=== PATIENT | male | born 1960 | race Caucasian/White ===

== ENCOUNTER 2021-04-19 06:27 | Emergency (ER) | payer BC ==
[2021-04-19] MEDS ORDERED: Cardizem IV 50 MG/10 ML IV ONE ×2 (07:20→07:25)
[2021-04-19] MEDS ORDERED: CARDIZEM DRIP 100 MG/100 ML D5W 100 ML IV PRN (07:20)
[2021-04-19] MEDS ORDERED: CARDIZEM DRIP 100 MG/100 ML D5W 100 ML IV ONE (07:24)
[2021-04-19 07:29] LABS: Absolute Neutrophil Ct (ANC) 3.65 (1.4-6.9); BASOPHIL % 0.2 % (0.0-0.4); Basophil (Absolute #) 0.01 (0-0.4); Eosinophil % 2.9 % (0.00-5.0); Eosinophil (Absolute #) 0.16 (0-0.5); Hematocrit 41.5 % (42-50); Hemoglobin 13.3 gm/dl (12.5-18.0); Lymphocyte (Absolute #) 1.23 (1.0-4.6); Lymphocytes % 22.2 % (24.0-44.0); Mean Cell Volume 95.8 fl (78-100); Mean Corpuscular Hemoglobin 30.7 pg (26-32); Mean Platelet Volume 11.1 fl (7.5-11.0); Neutrophil % 65.7 % (36.0-66.0); Platelet Count 214 K/mm3 (150-450); Red Blood Count 4.33 M/mm3 (4.1-5.6); Red Cell Distribution Width 13.9 % (11.5-14.0); White Blood Count 5.6 K/mm3 (4.0-10.5)
[2021-04-19 08:00] LABS: ALBUMIN 4.1 g/dL (3.5-5.0); ALKALINE PHOSPHATASE 104 U/L (38-126); ANION GAP 15.1 MEQ/L (5-15); BLOOD UREA NITROGEN 22 mg/dL (9-20); CHLORIDE 105 mmol/L (98-107); Calcium 9.4 mg/dL (8.4-10.2); Carbon Dioxide 25 mmol/L (22-30); Creatinine 1 1.08 mg/dL (0.66-1.25); EST GLOMERULAR FILTRATION RATE > 60.0 ML/MIN; Glucose 92 mg/dL (74-106); NT PRO BNP 104 pg/mL (0-900); Potassium 4.1 mmol/L (3.5-5.1); SGOT/AST 27 U/L (17-59); SGPT/ALT 23 U/L (0-50); SODIUM 141 mmol/L (137-145); Total Protein 6.8 g/dL (6.3-8.2)
--- NOTE | 2021-04-19 08:33 | ERPHSYRPT ---
- History of Present Illness Time Seen by Provider: 04/19/21 06:30 Source: patient Exam Limitations: no limitations Patient Subjective Stated Complaint: I sat down to have my coffee and started getting sweaty and hot and couldn't get a correct reading on my pulse Triage Nursing Assessment: Pt c/o palpitations, states, "I think I'm back in a-fib". Heart tones irregular, pt c/o sob. Pt's O2 sats 99-100% on rm air. Lungs clear bilat ant and post. 3+ pitting edema bilat. Physician History: Patient is a 61-year-old male with a history of A. fib presents to our ED with complaints of heart palpitations and diaphoresis observed today at 5:30 AM. Patient states he was preparing to have a couple coffee on his way to work when symptoms started. He felt slightly lightheaded. No syncope. Patient checked his pulse and was unable to palpate a pulse. Patient became concerned and came to our ED. Patient has had an ablation for his A. fib in the past. He is currently on Xarelto. No associated chest pain. No shortness of breath. No nausea or vomiting. Symptoms are mild to moderate in intensity. No specific w orsening or improving factors. Patient voices no other complaints or concerns at this time. Timing/Duration: today Severity: moderate Modifying Factors: Improves With: nothing Associated Symptoms: diaphoresis, other (Slight lightheadedness) Allergies/Adverse Reactions: No Known Drug Allergies Allergy (Verified 04/19/21 06:44) Home Medications: Alprazolam [Alprazolam ER] 0.5 mg PO DAILY 04/19/21 [History] Cyclobenzaprine HCl 10 mg [Cyclobenzaprine 10 MG] 1 tab PO TID 04/19/21 [History] Ferrous Sulfate 325 mg [Feosol 325 mg] 1 tab PO QID PRN 04/19/21 [History] Furosemide 40 mg PO DAILY 04/19/21 [History] Gabapentin 300 mg [Neurontin 300 mg] 900 mg PO TID 04/19/21 [History] Hydrocodone/Acetaminophen [Hydrocodone-Acetamin 5-325 mg] 1 tab PO QID PRN PRN 04/19/21 [History] Metoprolol Succinate 25 mg Xl* [Toprol-Xl 25MG Tablets] 1 tab PO DAILY 04/19/21 [History] Potassium Chloride 10 meq PO DAILY 04/19/21 [History] Rivaroxaban [Xarelto] 20 mg PO DAILY 04/19/21 [History] Hx Tetanus, Diphtheria Vaccination/Date Given: Yes Hx Influenza Vaccination/Date Given: Yes Hx Pneumococcal Vaccination/Date Given: No Immunizations Up to Date: Yes Travel Risk - International Travel Have you traveled outside of the country in past 3 weeks: No - Coronavirus Screening Are you exhibiting any of the following symptoms?: Yes Symptoms: Shortness of Breath Close contact with a COVID-19 positive Pt in past 14-21 Days: No - Vaccine Status Have you recieved a Covid-19 vaccination: Yes 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 - Vaccination Dates Date of 2cond Vaccination (if applicable): Aug, 2020 - Review of Systems Constitutional: No Symptoms, No Fever, No Chills Eyes: No Symptoms Ears, Nose, & Throat: No Symptoms Respiratory: No Symptoms, No Cough, No Dyspnea Cardiac: No Symptoms, No Chest Pain, No Edema, No Syncope Abdominal/Gastrointestinal: No Symptoms, No Abdominal Pain, No Nausea, No Vomiting, No Diarrhea Genitourinary Symptoms: No Symptoms, No Dysuria Musculoskeletal: No Symptoms, No Back Pain, No Neck Pain Skin: No Symptoms, No Rash Neurological: No Symptoms, No Dizziness, No Focal Weakness, No Sensory Changes Psychological: No Symptoms Endocrine: No Symptoms Hematologic/Lymphatic: No Symptoms Immunological/Allergic: No Symptoms All Other Systems: Reviewed and Negative - Past Medical History Pertinent Past Medical History: Yes Neurological History: No Pertinent History ENT History: No Pertinent History Cardiac History: Arrhythmia Respiratory History: No Pertinent History Endocrine Medical History: No Pertinent History Musculoskeletal History: No Pertinent History GI Medical History: No Pertinent History History: No Pertinent History Psycho-Social History: No Pertinent History Male Reproductive Disorders: No Pertinent History Other Medical History: R RTC repair in the past. Back fusion L4-5 2016. - Past Surgical History Past Surgical History: Yes Neuro Surgical History: No Pertinent History Cardiac: Cardiac Catheterization, Other Respiratory: No Pertinent History Gastrointestinal: No Pertinent History Genitourinary: No Pertinent History Musculoskeletal: No Pertinent History Male Surgical History: No Pertinent History Other Surgical History: BARIATRIC, pinched nerves back, cardiac ablation - Social History Smoking Status: Former smoker Exposure to second hand smoke: No Drug Use: none Patient Lives Alone: Yes - Nursing Vital Signs Nursing Vital Signs: Initial Vital Signs Temperature 96.2 F 04/19/21 06:28 Pulse Rate 88 04/19/21 06:28 Respiratory Rate 30 H 04/19/21 06:28 Blood Pressure 162/123 04/19/21 06:28 O2 Sat by Pulse Oximetry 99 04/19/21 06:28 Pain Scale Pain Intensity 0 - Physical Exam General Appearance: no apparent distress, alert, other (Patient is slightly diaphoretic) Eye Exam: PERRL/EOMI, eyes nml inspection Ears, Nose, Throat Exam: normal ENT inspection, TMs normal, pharynx normal, moist mucous membranes Neck Exam: normal inspection, non-tender, supple, full range of motion Respiratory Exam: normal breath sounds, lungs clear, airway intact, No respiratory distress Cardiovascular Exam: regular rate/rhythm, normal heart sounds, normal peripheral pulses Gastrointestinal/Abdomen Exam: soft, normal bowel sounds, No tenderness, No mass Back Exam: normal inspection, normal range of motion, No CVA tenderness, No vertebral tenderness Extremity Exam: normal inspection, normal range of motion, pelvis stable Neurologic Exam: alert, oriented x 3, cooperative, normal mood/affect, sensation nml, No motor deficits Skin Exam: normal color, warm, dry, No rash Lymphatic Exam: No adenopathy SpO2 Interpretation: normal SpO2: 95 O2 Delivery: Room Air - Course Nursing assessment & vital signs reviewed: Yes EKG Interpreted by Me: RATE (107), A-fib, NORMAL AXIS, NORMAL INTERVALS (Patient is in atrial fibrillation with RVR. Otherwise normal EKG) - Radiology Exams Chest X-ray Interpretation: Teleradiologist Report (New left midlung infiltrate versus atelectasis. Heart and lungs are nonremarkable. Calcified hilar lymph node. Intact bony thorax.) Ordered Tests: Active Orders 24 hr Category Date Time Status AMA [Release AMA] OM.NOW Care 04/19/21 10:35 Active Slot Manager STAT Care 04/19/21 07:12 Active EKG-ER Only STAT Care 04/19/21 07:11 Active IV Insertion STAT Care 04/19/21 07:11 Active Pulse Oximetry (ED) STAT Care 04/19/21 07:11 Active CHEST 1 VIEW (PORTABLE) Stat Exams 04/19/21 09:29 Completed CBC W DIFF Stat Lab 04/19/21 06:40 Completed CMP Stat Lab 04/19/21 06:40 Completed NT PRO BNP Stat Lab 04/19/21 06:40 Completed TROPONIN Q3H Lab 04/19/21 06:40 Completed TROPONIN Q3H Lab 04/19/21 10:25 Received TROPONIN Q3H Lab 04/19/21 13:15 Ordered TROPONIN Q3H Lab 04/19/21 16:15 Ordered TROPONIN Q3H Lab 04/19/21 19:15 Ordered UA W/RFX UR CULTURE Stat Lab 04/19/21 07:12 Completed Medication Summary Generic Name Dose Route Start Last Admin Trade Name Freq PRN Reason Stop Dose Admin Diltiazem HCl 100 mls @ 5 mls/hr 04/19/21 07:20 04/19/21 09:17 Cardizem Drip 100 Mg/100 Ml D5w IV 05/19/21 07:19 10 mg/hr .Q20H PRN 10 mls/hr HEART RATE/ A-FIB Titration Protocol 5 MG/HR Discontinued Medications Generic Name Dose Route Start Last Admin Trade Name Freq PRN Reason Stop Dose Admin Diltiazem HCl 20 mg 04/19/21 07:20 04/19/21 07:31 Diltiazem Hcl Iv 5 Mg/Ml Vial IV 04/19/21 07:21 20 mg STAT ONE Administration Diltiazem HCl Confirm 04/19/21 07:25 Diltiazem Hcl Iv 5 Mg/Ml Vial Administered 04/19/21 07:26 Dose 50 mg IV .[employer] Lab/Rad Data: Laboratory Result Diagrams 04/19/21 06:40 04/19/21 06:40 Laboratory Results 04/19/21 04/19/21 04/19/21 Range/Units 07:12 06:40 06:40 WBC (4.0-10.5) K/mm3 RBC (4.1-5.6) M/mm3 Hgb (12.5-18.0) gm/dl Hct (42-50) % MCV (78-100) fl MCH (26-32) pg MCHC (32-36) g/dl RDW (11.5-14.0) % Plt Count (150-450) K/mm3 MPV (7.5-11.0) fl Gran % (36.0-66.0) % Eos # (Auto) (0-0.5) Absolute Lymphs (auto) (1.0-4.6) Absolute Monos (auto) (0.0-1.3) Lymphocytes % (24.0-44.0) % Monocytes % (0.0-12.0) % Eosinophils % (0.00-5.0) % Basophils % (0.0-0.4) % Absolute Granulocytes (1.4-6.9) Basophils # (0-0.4) Sodium 141 (137-145) mmol/L Potassium 4.1 (3.5-5.1) mmol/L Chloride 105 (98-107) mmol/L Carbon Dioxide 25 (22-30) mmol/L Anion Gap 15.1 H (5-15) MEQ/L BUN 22 H (9-20) mg/dL Creatinine 1.08 (0.66-1.25) mg/dL Estimated GFR > 60.0 ML/MIN Glucose 92 (74-106) mg/dL Calcium 9.4 (8.4-10.2) mg/dL Total Bilirubin 0.40 (0.2-1.3) mg/dL AST 27 (17-59) U/L ALT 23 (0-50) U/L Alkaline Phosphatase 104 (38-126) U/L Troponin I < 0.012 (0.000-0.034) ng/mL NT-Pro-B Natriuret Pep 104 (0-900) pg/mL Serum Total Protein 6.8 (6.3-8.2) g/dL Albumin 4.1 (3.5-5.0) g/dL Urine Color YELLOW (YELLOW) Urine Appearance CLEAR (CLEAR) Urine pH 7.0 (5-6) Ur Specific [place] 1.025 (1.005-1.025) Urine Protein NEGATIVE (Negative) Urine Ketones NEGATIVE (NEGATIVE) Urine Blood NEGATIVE (0-5) Errol/ul Urine Nitrite NEGATIVE (NEGATIVE) Urine Bilirubin NEGATIVE (NEGATIVE) Urine Urobilinogen 0.2 (0-1) mg/dL Ur Leukocyte Esterase NEGATIVE (NEGATIVE) Urine Culture Reflexed NO (NO) Urine Glucose NEGATIVE (NEGATIVE) mg/dL 04/19/21 Range/Units 06:40 WBC 5.6 (4.0-10.5) K/mm3 RBC 4.33 (4.1-5.6) M/mm3 Hgb 13.3 (12.5-18.0) gm/dl Hct 41.5 L (42-50) % MCV 95.8 (78-100) fl MCH 30.7 (26-32) pg MCHC 32.0 (32-36) g/dl RDW 13.9 (11.5-14.0) % Plt Count 214 (150-450) K/mm3 MPV 11.1 H (7.5-11.0) fl Gran % 65.7 (36.0-66.0) % Eos # (Auto) 0.16 (0-0.5) Absolute Lymphs (auto) 1.23 (1.0-4.6) Absolute Monos (auto) 0.50 (0.0-1.3) Lymphocytes % 22.2 L (24.0-44.0) % Monocytes % 9.0 (0.0-12.0) % Eosinophils % 2.9 (0.00-5.0) % Basophils % 0.2 (0.0-0.4) % Absolute Granulocytes 3.65 (1.4-6.9) Basophils # 0.01 (0-0.4) Sodium (137-145) mmol/L Potassium (3.5-5.1) mmol/L Chloride (98-107) mmol/L Carbon Dioxide (22-30) mmol/L Anion Gap (5-15) MEQ/L BUN (9-20) mg/dL Creatinine (0.66-1.25) mg/dL Estimated GFR ML/MIN Glucose (74-106) mg/dL Calcium (8.4-10.2) mg/dL Total Bilirubin (0.2-1.3) mg/dL AST (17-59) U/L ALT (0-50) U/L Alkaline Phosphatase (38-126) U/L Troponin I (0.000-0.034) ng/mL NT-Pro-B Natriuret Pep (0-900) pg/mL Serum Total Protein (6.3-8.2) g/dL Albumin (3.5-5.0) g/dL Urine Color (YELLOW) Urine Appearance (CLEAR) Urine pH (5-6) Ur Specific [place] (1.005-1.025) Urine Protein (Negative) Urine Ketones (NEGATIVE) Urine Blood (0-5) Errol/ul Urine Nitrite (NEGATIVE) Urine Bilirubin (NEGATIVE) Urine Urobilinogen (0-1) mg/dL Ur Leukocyte Esterase (NEGATIVE) Urine Culture Reflexed (NO) Urine Glucose (NEGATIVE) mg/dL - Progress Progress: improved Progress Note: Case discussed with Dr. Gibbons at [facility] who accepts transfer. Dr. Gibbons advised to Dr. Fontenot no longer practices at [facility]. I informed patient of this. 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 04/19/21 09:18 Patient advised staff that he is tired of waiting. [facility] is out on another call. We do not have a precise CTA to offer our patient. Patient stated he was hungry and has things to do so can no longer wait. We ordered a tray. However patient later declined his tray. Patient states he will drive himself to [facility]. Risks regarding leaving AGAINST MEDICAL ADVICE were discussed. Patient is currently anticoagulated. Patient refused to wait any longer and is requesting monitor to be removed so that he can leave. Patient is of sound mind. Patient is appropriate to make informed and independent medical decisions. Patient understands that leaving AGAINST MEDICAL ADVICE can result in delayed diagnosis, increased risk of morbidity, mortality, short and long-term disability including . In spite of these risks, patient has decided to leave AGAINST MEDICAL ADVICE. Patient understands that he may return to our ED at any point if he reconsiders. Patient agrees to follow-up with his primary care doctor within 48 hours for reevaluation. Patient voices no other complaints or concerns at this time. We will release patient AGAINST MEDICAL ADVICE per their request. Portions of this note were created with voice recognition technology. There may be grammatical, spelling, punctuation or sound alike errors 04/19/21 10:37 04/19/21 10:45 Chest x-ray resulted after patient departed. Chest x-ray reveals a left midlung infiltrate versus atelectasis. Patient has no findings consistent with pneumonia. No fever no shortness of breath no cough lungs are clear oxygenation is within normal limits. It is unlikely that this is a pneumonia. Clinical sta tus in favor of atelectasis. Counseled pt/family regarding: lab results, diagnosis, rad results - Departure Departure Disposition: Transfer Clinical Impression: Atrial fibrillation with RVR Condition: Stable Critical Care Time: No Referrals: RUBINA MORALES NP [Primary Care Provider] - Additional Instructions: Discharge/Care Plan EFREN CARTER was seen on 04/19/21 in the Emergency Room. The patient was counseled regarding Diagnosis,Lab results, Imaging studies, need for follow up and when to return to the Emergency Room. Prescriptions given: Discharge Note I have spoken with the patient and/or caregivers. I have explained the patient's condition, diagnosis and treatment plan based on the information available to me at this time. I have answered the patient's and/or caregiver's questions and addressed any concerns. The patient and/or caregivers have as good understanding of the patient's diagnosis, condition and treatment plan as can be expected at this point. The vital signs have been stable. The patient's condition is stable and appropriate for discharge from the emergency department. The patient will pursue further outpatient evaluation with the primary care physician or other designated or consulting physician as outlined in the discharge instructions. The patient and/or caregivers are agreeable to this plan of care and follow-up instructions have been explained in detail. The patient and/or caregivers have received these instruction. The patient/and or caregivers are aware that any significant change in condition or worsening of symptoms should prompt an immediate return to this or the closest emergency department or call 911.
[2021-04-19 09:03] LABS: Appearance CLEAR (CLEAR)
[2021-04-19 09:04] LABS: Bilirubin NEGATIVE (NEGATIVE); Blood NEGATIVE Ery/ul (0-5); Glucose NEGATIVE (NEGATIVE); Ketones NEGATIVE (NEGATIVE); Leukocyte Esterase NEGATIVE (NEGATIVE); Nitrite NEGATIVE (NEGATIVE); Protein,Urine Dip NEGATIVE (Negative); Specific Gravity 1.025 (1.005-1.025); Urobilinogen 0.2 mg/dL (0-1)
--- NOTE | 2021-04-19 09:48 | XRAY ---
Indication: Atrial fibrillation. Comparison: November 13, 2007. Portable apical lordotic chest demonstrates new peripheral left midlung infiltrate versus atelectasis. Remaining heart and lungs unremarkable again with right hilar calcified nodes. Bony thorax intact.
[2021-04-19 10:10] VITALS: BP 131/72; PULSE 108
[2021-04-19 10:41] VITALS: O2SAT 95
== END 2021-04-19 10:37 | disposition left against medical advice (07) ==
LOC: ED 06:27
DX: I48.91 Unspecified atrial fibrillation (principal)
CPT/HCPCS: 36000; 36415; 71045; 80053; 81001; 83880; 84484; 85025; 93005; 93041; 94760; 96374; 99284

== ENCOUNTER 2022-10-21 10:26 | Emergency (ER) | payer OTHER ==
[2022-10-21 10:47] VITALS: O2SAT 96
[2022-10-21] MEDS ORDERED: CLINDAMYCIN-D5W 600 MG/50 ML*** 600 MG/50 ML BAG IV STA (10:56)
[2022-10-21] MEDS ORDERED: CLINDAMYCIN-D5W 600 MG/50 ML*** 600 MG/50 ML BAG IV ONE (11:00)
--- NOTE | 2022-10-21 11:16 | ERPHSYRPT ---
- History of Present Illness Time Seen by Provider: 10/21/22 10:36 Source: patient Exam Limitations: no limitations Patient Subjective Stated Complaint: hole in right leg Triage Nursing Assessment: Patient reports that he has a wound to his right l ower anterior leg that he has had for estimated 6 months. Patient reports that he is currently being treated in outpatient wound clinic here at [facility] twice weekly on Tuesdays and . Patient reports that since his last visit here on 10/18/22 his leg swelling has increased and he now has redness and increased drainage. Dressing removed to right anterior lower leg and was saturated in yellow drainage. Right lower extremity does appear red, warm and tender to touch. Two open areas noted to area - 1 measuring 1.8cm x 1.2cm with yellow slough to wound bed, 2 measuring 0.3cm x 0.3cm with yellow slough to wound bed. Intact blister noted above open areas. +3 pitting edema noted- patien t reports that he has not taken his lasix yet this morning. Physician History: Patient has a chronic wound of the right leg. Patient appears to have venous stasis from A-fib and potential heart failure. Patient states that he has been seen wound care here twice a week for 2 weeks. States he feels the wound has gotten bigger over the past 2 to 3 days. Dressing removed. No falls or other trauma. No shortness of breath, systemic signs of illness, chest pain, signs or symptoms of a pulmonary embolism today. Patient parent had a fever 3 days prior to arrival but afebrile here today. Allergies/Adverse Reactions: No Known Drug Allergies Allergy (Verified 10/21/22 10:37) Home Medications: Furosemide 40 mg PO DAILY 04/19/21 [History] Gabapentin [Neurontin ] 900 mg PO TID 04/19/21 [History] Metoprolol Succinate 25 mg Xl* [Toprol-Xl 25MG Tablets] 1 tab PO DAILY 04/19/21 [History] Potassium Chloride 10 meq PO DAILY 04/19/21 [History] Rivaroxaban [Xarelto] 20 mg PO DAILY 04/19/21 [History] Hx Tetanus, Diphtheria Vaccination/Date Given: No Hx Influenza Vaccination/Date Given: Yes Hx Pneumococcal Vaccination/Date Given: No Immunizations Up to Date: Yes Travel Risk - International Travel Have you traveled outside of the country in past 3 weeks: No - Coronavirus Screening Are you exhibiting any of the following symptoms?: No Close contact with a COVID-19 positive Pt in past 14-21 Days: No - Vaccine Status Have you recieved a Covid-19 vaccination: Yes 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 - Vaccination Dates Date of 2cond Vaccination (if applicable): na Dates if Unknown: unknown - Review of Systems Constitutional: No Fever, No Chills Eyes: No Symptoms Ears, Nose, & Throat: No Symptoms Respiratory: No Cough, No Dyspnea Cardiac: No Chest Pain, No Edema, No Syncope Abdominal/Gastrointestinal: No Abdominal Pain, No Nausea, No Vomiting, No Diarrhea Genitourinary Symptoms: No Dysuria Musculoskeletal: Other (leg swelling), No Back Pain, No Neck Pain Skin: No Rash Neurological: No Dizziness, No Focal Weakness, No Sensory Changes Psychological: No Symptoms Endocrine: No Symptoms All Other Systems: Reviewed and Negative - Past Medical History Pertinent Past Medical History: Yes Neurological History: Peripheral Neuropathy ENT History: No Pertinent History Cardiac History: Arrhythmia, Hypertension Respiratory History: No Pertinent History Endocrine Medical History: No Pertinent History Musculoskeletal History: Degenerative Disk Disease, Osteoarthritis GI Medical History: No Pertinent History History: No Pertinent History Psycho-Social History: No Pertinent History Male Reproductive Disorders: No Pertinent History Other Medical History: HX OF 2 SURGERIES INCLUDING FUSION AND DECOMPRESSION OF PINCHED NERVE. SINCE 2ND SURGERY HAS NEUROPATHY RIGHT THIGH. - Past Surgical History Past Surgical History: Yes Neuro Surgical History: No Pertinent History Cardiac: Cardiac Catheterization, Other Respiratory: No Pertinent History Gastrointestinal: No Pertinent History Genitourinary: No Pertinent History Musculoskeletal: No Pertinent History Male Surgical History: No Pertinent History Other Surgical History: BARIATRIC, pinched nerves back, cardiac ablation - Social History Smoking Status: Former smoker Exposure to second hand smoke: No Drug Use: none Patient Lives Alone: Yes - Nursing Vital Signs Nursing Vital Signs: Initial Vital Signs Temperature 97.8 F 10/21/22 10:27 Pulse Rate 64 10/21/22 10:27 Respiratory Rate 18 10/21/22 10:27 Blood Pressure 106/90 10/21/22 10:27 O2 Sat by Pulse Oximetry 96 10/21/22 10:27 Pain Scale Pain Intensity 0 - Physical Exam General Appearance: no apparent distress, alert Eye Exam: PERRL/EOMI, eyes nml inspection Ears, Nose, Throat Exam: normal ENT inspection, TMs normal, pharynx normal, moist mucous membranes Neck Exam: normal inspection, non-tender, supple, full range of motion Respiratory Exam: normal breath sounds, lungs clear, No respiratory distress Cardiovascular Exam: regular rate/rhythm, normal heart sounds, normal peripheral pulses Gastrointestinal/Abdomen Exam: soft, normal bowel sounds, No tenderness, No mass Male Genitalia Exam: other (Unilateral right leg swelling. Wound 2 cm x 2 cm over the anterior right side. Somewhat red, warm to the touch. 2+ pulses, full range of motion without pain, no signs of a septic joint, no knee effusion, ankle effusion.) Back Exam: normal inspection, normal range of motion, No CVA tenderness, No vertebral tenderness Extremity Exam: normal inspection, normal range of motion, pelvis stable Neurologic Exam: alert, oriented x 3, cooperative, normal mood/affect, nml cerebellar function, nml station & gait, sensation nml, No motor deficits Skin Exam: normal color, warm, dry, No rash Lymphatic Exam: No adenopathy SpO2: 96 - Course Nursing assessment & vital signs reviewed: Yes Ordered Tests: Active Orders 24 hr Category Date Time Status EKG-ER Only STAT Care 10/21/22 11:19 Completed IV Insertion STAT Care 10/21/22 10:55 Completed Ultrasound Unilateral Extremities [VENOUS UNILAT/ Exams 10/21/22 11:52 Taken LIMITED EXTREMIT] [US] Stat CBC W DIFF Stat Lab 10/21/22 11:17 Completed CMP Stat Lab 10/21/22 11:17 Completed D-DIMER QUANTITATIVE Stat Lab 10/21/22 11:17 Completed NT PRO BNPII Stat Lab 10/21/22 11:17 Completed TROPONIN Q4H Lab 10/21/22 11:17 Completed Medication Summary Discontinued Medications Generic Name Dose Route Start Last Admin Trade Name Freq PRN Reason Stop Dose Admin Clindamycin HCl/Dextrose 600 mg in 50 mls @ 100 mls/hr 10/21/22 10:56 10/21/22 11:40 Clindamycin-D5w 600 Mg/50 Ml IV 10/21/22 11:25 Infused STAT STA Infusion Clindamycin HCl/Dextrose Confirm 10/21/22 11:00 Clindamycin-D5w 600 Mg/50 Ml Administered 10/21/22 11:01 Dose 600 mg in 50 mls @ ud IV .STK-MED ONE Lab/Rad Data: Laboratory Result Diagrams 10/21/22 11:17 10/21/22 11:17 Laboratory Results 10/21/22 10/21/22 10/21/22 Range/Units 11:17 11:17 11:17 WBC (4.0-10.5) x10^3/uL RBC (4.1-5.6) x10^6/uL Hgb (12.5-18.0) g/dL Hct (42-50) % MCV (78-100) fL MCH (26-32) pg MCHC (32-36) g/dL RDW (11.5-14.0) % Plt Count (150-450) x10^3/uL MPV (7.5-11.0) fL Gran % (36.0-66.0) % Immature Gran % (Auto) (0.00-0.4) % Nucleat RBC Rel Count (0.00-0.1) % Eos # (Auto) (0-0.5) x10^3/uL Immature Gran # (Auto) (0.00-0.03) x10^3u/L Absolute Lymphs (auto) (1.0-4.6) x10^3/uL Absolute Monos (auto) (0.0-1.3) x10^3/uL Absolute Nucleated RBC (0.00-0.01) x10^3u/L Lymphocytes % (24.0-44.0) % Monocytes % (0.0-12.0) % Eosinophils % (0.00-5.0) % Basophils % (0.0-0.4) % Absolute Granulocytes (1.4-6.9) x10^3/uL Basophils # (0-0.4) x10^3/uL D-Dimer 2.97 H* (0.0-0.50) mg/L Sodium 140 (137-145) mmol/L Potassium 4.4 (3.5-5.1) mmol/L Chloride 102 (98-107) mmol/L Carbon Dioxide 29 (22-30) mmol/L Anion Gap 12.8 (5-15) MEQ/L BUN 25 H (9-20) mg/dL Creatinine 1.07 (0.66-1.25) mg/dL Estimated GFR > 60.0 ML/MIN Glucose 121 H (74-106) mg/dL Calcium 8.6 (8.4-10.2) mg/dL Total Bilirubin 0.80 (0.2-1.3) mg/dL AST 39 (17-59) U/L ALT 38 (0-50) U/L Alkaline Phosphatase 92 (38-126) U/L Troponin I < 0.012 (0.000-0.034) ng/mL NT-Pro-B Natriuret Pep 600 (<300) pg/mL Serum Total Protein 7.1 (6.3-8.2) g/dL Albumin 3.8 (3.5-5.0) g/dL 10/21/22 Range/Units 11:17 WBC 5.2 (4.0-10.5) x10^3/uL RBC 4.16 (4.1-5.6) x10^6/uL Hgb 13.2 (12.5-18.0) g/dL Hct 41.4 L (42-50) % MCV 99.5 (78-100) fL MCH 31.7 (26-32) pg MCHC 31.9 L (32-36) g/dL RDW 15.0 H (11.5-14.0) % Plt Count 156 (150-450) x10^3/uL MPV 10.5 (7.5-11.0) fL Gran % 70.7 H (36.0-66.0) % Immature Gran % (Auto) 0.6 H (0.00-0.4) % Nucleat RBC Rel Count 0.0 (0.00-0.1) % Eos # (Auto) 0.17 (0-0.5) x10^3/uL Immature Gran # (Auto) 0.03 (0.00-0.03) x10^3u/L Absolute Lymphs (auto) 0.66 L (1.0-4.6) x10^3/uL Absolute Monos (auto) 0.63 (0.0-1.3) x10^3/uL Absolute Nucleated RBC 0.00 (0.00-0.01) x10^3u/L Lymphocytes % 12.7 L (24.0-44.0) % Monocytes % 12.1 H (0.0-12.0) % Eosinophils % 3.3 (0.00-5.0) % Basophils % 0.6 (0.0-0.4) % Absolute Granulocytes 3.69 (1.4-6.9) x10^3/uL Basophils # 0.03 (0-0.4) x10^3/uL D-Dimer (0.0-0.50) mg/L Sodium (137-145) mmol/L Potassium (3.5-5.1) mmol/L Chloride (98-107) mmol/L Carbon Dioxide (22-30) mmol/L Anion Gap (5-15) MEQ/L BUN (9-20) mg/dL Creatinine (0.66-1.25) mg/dL Estimated GFR ML/MIN Glucose (74-106) mg/dL Calcium (8.4-10.2) mg/dL Total Bilirubin (0.2-1.3) mg/dL AST (17-59) U/L ALT (0-50) U/L Alkaline Phosphatase (38-126) U/L Troponin I (0.000-0.034) ng/mL NT-Pro-B Natriuret Pep (<300) pg/mL Serum Total Protein (6.3-8.2) g/dL Albumin (3.5-5.0) g/dL - Progress Progress: improved Progress Note: 10/21/22 11:18 Differential diagnosis includes DVT, worsening A-fib, CHF, infection, worsening venous stasis -Basic labs, troponin, D-dimer, we will start IV clindamycin here. 10/21/22 15:06 Patient CHF peptide is slightly elevated. Patient will need to follow-up with PCP for this. Patient's D-dimer was also elevated. Ultrasound obtained demonstrated no signs of a DVT in the right leg. Possible worsening venous stasis versus early right leg cellulitis. Therefore we will treat with clindamycin going home. Patient will need a follow-up PCP reexam in 2 to 3 days. Also reexamine for potential early congestive heart failure. On exam patient has no wheezes, abnormal lung sounds, no tachycardia, no tachypnea, no hypoxia. Therefore I do not believe he needs to be admitted for a full CHF work-up at this point time. Can be done as an outpatient with close follow-up. I did explain this to the patient. Counseled pt/family regarding: lab results, diagnosis, need for follow-up, rad results Medical Desision Making - Diagnostic Testing Diagnostic test were ordered, analyzed, and reviewed by me: Yes - Departure Departure Disposition: Home Clinical Impression: Cellulitis of right lower leg Condition: Stable Critical Care Time: No Referrals: [facility] COORDINATOR [Primary Care Provider] - Follow up/PCP as directed Instructions: Wound Care (DC), Cellulitis (Skin Infection), Adult ED Prescriptions: Clindamycin HCl 150 mg [Cleocin 150 mg Capsule] 2 cap PO QID #56 cap
[2022-10-21 11:18] LABS: Absolute Neutrophil Ct (ANC) 3.69 x10^3/uL (1.4-6.9); BASOPHIL % 0.6 % (0.0-0.4); Basophil (Absolute #) 0.03 x10^3/uL (0-0.4); Eosinophil % 3.3 % (0.00-5.0); Eosinophil (Absolute #) 0.17 x10^3/uL (0-0.5); Hematocrit 41.4 % (42-50); Hemoglobin 13.2 g/dL (12.5-18.0); IMMATURE GRAN # 0.03 x10^3u/L (0.00-0.03); IMMATURE GRAN % 0.6 % (0.00-0.4); Lymphocyte (Absolute #) 0.66 x10^3/uL (1.0-4.6); Lymphocytes % 12.7 % (24.0-44.0); Mean Cell Volume 99.5 fL (78-100); Mean Corpuscular Hemoglobin 31.7 pg (26-32); Mean Corpuscular Hgb Concent. 31.9 g/dL (32-36); Mean Platelet Volume 10.5 fL (7.5-11.0); Monocyte (Absolute #) 0.63 x10^3/uL (0.0-1.3); Monocytes % 12.1 % (0.0-12.0); Neutrophil % 70.7 % (36.0-66.0); Platelet Count 156 x10^3/uL (150-450); Red Blood Count 4.16 x10^6/uL (4.1-5.6); White Blood Count 5.2 x10^3/uL (4.0-10.5)
[2022-10-21 11:41] LABS: ALBUMIN 3.8 g/dL (3.5-5.0); ALKALINE PHOSPHATASE 92 U/L (38-126); ANION GAP 12.8 MEQ/L (5-15); BLOOD UREA NITROGEN 25 mg/dL (9-20); CHLORIDE 102 mmol/L (98-107); Calcium 8.6 mg/dL (8.4-10.2); Carbon Dioxide 29 mmol/L (22-30); Creatinine 1 1.07 mg/dL (0.66-1.25); EST GLOMERULAR FILTRATION RATE > 60.0 ML/MIN; Glucose 121 mg/dL (74-106); NT PRO BNPII 600 pg/mL (<300); Potassium 4.4 mmol/L (3.5-5.1); SGOT/AST 39 U/L (17-59); SGPT/ALT 38 U/L (0-50); SODIUM 140 mmol/L (137-145); Total Protein 7.1 g/dL (6.3-8.2)
[2022-10-21 13:51] VITALS: BP 133/73; PULSE 62
--- NOTE | 2022-10-21 19:55 | XRAY ---
Indication: Pain and swelling. Two-dimensional sonogram and color Doppler imaging of the major venous vessels of the right leg performed. Comparison: None No thrombus seen in the examined deep venous vessels of the right leg including greater saphenous vein. Veins demonstrate normal compressibility. Venous waveforms are normal with and without augmentation. Impression: Right leg negative for DVT. Comment: Preliminary report was given.
== END 2022-10-21 14:00 | disposition home or self-care (01) ==
LOC: ED 10:26
DX: L03.115 Cellulitis of right lower limb (principal); I10 Essential (primary) hypertension; Z79.01 Long term (current) use of anticoagulants; Z79.899 Other long term (current) drug therapy
CPT/HCPCS: 36000; 36415; 80053; 83880; 84484; 85025; 85379; 93005; 93971; 96365; 99284

== ENCOUNTER 2024-02-19 19:59 | Inpatient (IN) | payer MEDICARE ==
[2024-02-19 20:47] LABS: Absolute Neutrophil Ct (ANC) 4.82 x10^3/uL (1.78-5.38); BASOPHIL % 0.2 % (0.2-1.2); Basophil (Absolute #) 0.01 x10^3/uL (0.01-0.08); Eosinophil % 1.5 % (0.8-7.0); Hematocrit 33.4 % (40.1-51.0); Hemoglobin 10.7 g/dL (13.7-17.5); IMMATURE GRAN # 0.13 x10^3u/L (0.001-0.031); Lymphocytes % 9.3 % (21.8-53.1); Mean Cell Volume 103.7 fL (79.0-92.2); Mean Corpuscular Hemoglobin 33.2 pg (25.7-32.2); Mean Platelet Volume 10.7 fL (9.4-12.4); Monocyte (Absolute #) 0.82 x10^3/uL (0.30-0.82); Monocytes % 12.7 % (5.3-12.2); Neutrophil % 74.3 % (34.0-67.9); Platelet Count 179 x10^3/uL (163-337); Red Blood Count 3.22 x10^6/uL (4.63-6.08); Red Cell Distribution Width 14.9 % (11.6-14.4); White Blood Count 6.5 x10^3/uL (4.23-9.07)
[2024-02-19 21:00] LABS: ALBUMIN 3.5 g/dL (3.5-5.0); ANION GAP 14.1 MEQ/L (5-15); BILIRUBIN,TOTAL 0.8 mg/dL (0.2-1.3); Calcium 8.9 mg/dL (8.4-10.2); Creatinine 1 1.45 mg/dL (0.66-1.25); EST GLOMERULAR FILTRATION RATE 53.5 ML/MIN; Potassium 3.9 mmol/L (3.5-5.1); Total Protein 6.8 g/dL (6.3-8.2)
[2024-02-19 21:23] LABS: NT PRO BNPII 1100 pg/mL (<300); TROPONIN < 0.012 ng/mL (0.000-0.033)
--- NOTE | 2024-02-19 21:43 | ERPHSYRPT ---
- History of Present Illness Time Seen by Provider: 02/19/24 21:58 Exam Limitations: no limitations Patient Subjective Stated Complaint: pt states he has had increased swelling in his legs for more than a week. rt leg is more swollen and has blisters and weeping. not improving with treatment from quick care Triage Nursing Assessment: pt alert and oriented, answers questions approp. pt ambulates into room with slow steady gait noted with assist of cane. respirations nonlabored. skin warm and dry. lt lower leg with wound noted to posterior, skin discolored, 2+ edema. rt lower leg luis, 3+ edema, blisters on top of foot, and around lower leg. wounds to anterior ankle Physician History: 64-year-old male presents to the emergency department for evaluation of leg swelling x 1 week. Patient has been following with his nurse practitioner reg arding this leg swelling. Right is more swollen than the left. Patient had a right lower extremity ultrasound to rule out DVT. Ultrasound was performed 2 days ago and was negative for DVT. No associated shortness of breath. Symptoms have been progressive. Symptoms are moderate in intensity. No specific worsening or improving facto Patient denies fever. He voices no other complaints or concerns at this time portions of this note were created with voice recognition technology. There may be grammatical, spelling, punctuation or sound alike errors Timing/Duration: week(s) (1 week) Severity: moderate Modifying Factors: Improves With: nothing Associated Symptoms: denies symptoms Allergies/Adverse Reactions: No Known Drug Allergies Allergy (Verified 02/19/24 20:21) Home Medications: Metoprolol Succinate 25 mg Xl* [Toprol-Xl 25MG Tablets] 1 tab PO DAILY 04/19/21 [History] Potassium Chloride 10 meq PO DAILY 04/19/21 [History] Rivaroxaban [Xarelto] 20 mg PO DAILY 04/19/21 [History] Amiodarone HCl [Pacerone] 200 mg PO BID 02/19/24 [History] Bumetanide 1 mg [Bumex 1 mg] 1 mg PO BID 02/19/24 [History] Ferrous Sulfate 325 mg [Feosol 325 mg] 325 mg PO TID 02/19/24 [History] methocarbamoL [Methocarbamol] 750 mg PO TID PRN 02/19/24 [History] Hx Tetanus, Diphtheria Vaccination/Date Given: Yes Hx Influenza Vaccination/Date Given: Yes Hx Pneumococcal Vaccination/Date Given: No Immunizations Up to Date: Yes Travel Risk - International Travel Have you traveled outside of the country in past 3 weeks: No - Emerging Infectious Disease Are you exhibiting symptoms associated with any current EIDs: No - Review of Systems Constitutional: No Symptoms, No Fever, No Chills Eyes: No Symptoms Ears, Nose, & Throat: No Symptoms Respiratory: No Symptoms, No Cough, No Dyspnea Cardiac: No Symptoms, No Chest Pain, No Edema, No Syncope Abdominal/Gastrointestinal: No Symptoms, No Abdominal Pain, No Nausea, No Vomiting, No Diarrhea Genitourinary Symptoms: No Symptoms, No Dysuria Musculoskeletal: No Symptoms, No Back Pain, No Neck Pain Skin: No Symptoms, No Rash Neurological: No Symptoms, No Dizziness, No Focal Weakness, No Sensory Changes Psychological: No Symptoms Endocrine: No Symptoms Hematologic/Lymphatic: No Symptoms Immunological/Allergic: No Symptoms All Other Systems: Reviewed and Negative - Past Medical History Pertinent Past Medical History: Yes Neurological History: Peripheral Neuropathy ENT History: No Pertinent History Cardiac History: Arrhythmia, Hypertension Respiratory History: No Pertinent History Endocrine Medical History: No Pertinent History Musculoskeletal History: Degenerative Disk Disease, Osteoarthritis GI Medical History: No Pertinent History History: No Pertinent History Psycho-Social History: No Pertinent History Male Reproductive Disorders: No Pertinent History Other Medical History: HX OF 2 SURGERIES INCLUDING FUSION AND DECOMPRESSION OF PINCHED NERVE. SINCE 2ND SURGERY HAS NEUROPATHY RIGHT THIGH. - Past Surgical History Past Surgical History: Yes Neuro Surgical History: No Pertinent History Cardiac: Cardiac Catheterization, Other Respiratory: No Pertinent History Gastrointestinal: No Pertinent History Genitourinary: No Pertinent History Musculoskeletal: Orthopedic Surgery Male Surgical History: No Pertinent History Other Surgical History: BARIATRIC, pinched nerves back, cardiac ablation, rotator cuff repair - Social History Smoking Status: Former smoker Exposure to second hand smoke: No Drug Use: none Patient Lives Alone: Yes - Social Determinants of Health Will the patient participate in the screening: Declined to provide - Nursing Vital Signs Nursing Vital Signs: Initial Vital Signs Temperature 97.8 F 02/19/24 20:21 Pulse Rate 103 H 02/19/24 20:21 Respiratory Rate 18 02/19/24 20:21 Blood Pressure 131/99 02/19/24 20:21 O2 Sat by Pulse Oximetry 97 02/19/24 20:21 Pain Scale Pain Intensity 2 - Physical Exam General Appearance: no apparent distress, alert Eye Exam: PERRL/EOMI, eyes nml inspection Ears, Nose, Throat Exam: normal ENT inspection, moist mucous membranes Neck Exam: normal inspection, non-tender, supple, full range of motion Respiratory Exam: normal breath sounds, lungs clear, No respiratory distress Cardiovascular Exam: regular rate/rhythm, normal heart sounds, normal peripheral pulses Gastrointestinal/Abdomen Exam: soft, normal bowel sounds, No tenderness, No mass Back Exam: normal inspection, normal range of motion, No CVA tenderness, No vertebral tenderness Extremity Exam: normal inspection, normal range of motion, pelvis stable, other (The involved right lower extremities neurovascular intact distally compartments are soft cap refill less than 2 seconds. 3+ swelling of the right lower extremity 2+ swelling of the left lower extremity. There are multiple blisters at the dorsum of the right foot. The blisters are draining.) Neurologic Exam: alert, oriented x 3, cooperative, normal mood/affect, sensation nml, No motor deficits Skin Exam: normal color, warm, dry, No rash Lymphatic Exam: No adenopathy SpO2 Interpretation: normal SpO2: 97 O2 Delivery: Room Air - Course Nursing assessment & vital signs reviewed: Yes Ordered Tests: Active Orders 24 hr Category Date Time Status IV Insertion STAT Care 02/19/24 20:39 Active Pulse Oximetry (ED) STAT Care 02/19/24 22:10 Active CHEST 1 VIEW (PORTABLE) Stat Exams 02/19/24 21:43 Taken BLOOD CULTURE Stat Lab 02/19/24 22:26 Received CBC W DIFF Stat Lab 02/19/24 20:35 Completed CMP Stat Lab 02/19/24 20:35 Completed Lactic Acid Stat Lab 02/19/24 20:43 Completed NT PRO BNPII Stat Lab 02/19/24 20:35 Completed TROPONIN Q4H Lab 02/19/24 20:35 Completed UA W/RFX UR CULTURE Stat Lab 02/19/24 22:10 Ordered Transfer Order Routine Transfer 02/19/24 Ordered Medication Summary Generic Name Dose Route Start Last Admin Trade Name Freq PRN Reason Stop Dose Admin Piperacillin Sod/Tazobactam 100 mls @ 200 mls/hr 02/19/24 22:18 02/19/24 22:28 Sod 3.375 gm/ Sodium Chloride IV 02/19/24 22:47 200 mls/hr STAT ONE Administration Vancomycin HCl 1 gm in 200 mls @ 125 mls/hr 02/19/24 22:18 Vancomycin 1 Gram/200 Ml Bag IV 02/19/24 23:53 STAT ONE Discontinued Medications Generic Name Dose Route Start Last Admin Trade Name Royalq PRN Reason Stop Dose Admin Furosemide 40 mg 02/19/24 21:52 02/19/24 22:19 Furosemide 40 Mg/4 Ml Vial IV 02/19/24 21:53 Not Given STAT ONE Furosemide Confirm 02/19/24 22:15 Furosemide 40 Mg/4 Ml Vial Administered 02/19/24 22:16 Dose 40 mg .ROUTE .STK-MED ONE Sodium Chloride Confirm 02/19/24 22:21 Sodium Chloride 100ml Mini-Bag Plus Administered 02/19/24 22:22 Dose 100 mls @ ud IV .STK-MED ONE Piperacillin Sod/Tazobactam Sod Confirm 02/19/24 22:21 Piperacillin/Tazobactam Sodium 3.375 Gm Vial Administered 02/19/24 22:22 Dose 3.375 gm IV .STK-MED ONE Lab/Rad Data: Laboratory Result Diagrams 02/19/24 20:35 02/19/24 20:35 Laboratory Results 02/19/24 02/19/24 02/19/24 Range/Units 20:43 20:35 20:35 WBC (4.23-9.07) x10^3/uL RBC (4.63-6.08) x10^6/uL Hgb (13.7-17.5) g/dL Hct (40.1-51.0) % MCV (79.0-92.2) fL MCH (25.7-32.2) pg MCHC (32.3-36.5) g/dL RDW (11.6-14.4) % Plt Count (163-337) x10^3/uL MPV (9.4-12.4) fL Gran % (34.0-67.9) % Immature Gran % (Auto) (0.001-0.429) % Nucleat RBC Rel Count (0.00-0.2) % Eos # (Auto) (0.04-0.54) x10^3/uL Immature Gran # (Auto) (0.001-0.031) x10^3u/L Absolute Lymphs (auto) (1.32-3.57) x10^3/uL Absolute Monos (auto) (0.30-0.82) x10^3/uL Absolute Nucleated RBC (0.00-0.012) x10^3u/L Lymphocytes % (21.8-53.1) % Monocytes % (5.3-12.2) % Eosinophils % (0.8-7.0) % Basophils % (0.2-1.2) % Absolute Granulocytes (1.78-5.38) x10^3/uL Basophils # (0.01-0.08) x10^3/uL Sodium 139 (135-145) mmol/L Potassium 3.9 (3.5-5.1) mmol/L Chloride 105 (98-107) mmol/L Carbon Dioxide 24 (22-30) mmol/L Anion Gap 14.1 (5-15) MEQ/L BUN 25 H (9-20) mg/dL Creatinine 1.45 H (0.66-1.25) mg/dL Estimated GFR 53.5 ML/MIN Glucose 100 (74-106) mg/dL Lactic Acid 1.2 (0.4-2.0) Calcium 8.9 (8.4-10.2) mg/dL Total Bilirubin 0.80 (0.2-1.3) mg/dL AST 31 (17-59) U/L ALT 38 (0-50) U/L Alkaline Phosphatase 146 H (38-126) U/L Troponin I < 0.012 (0.000-0.033) ng/mL NT-Pro-B Natriuret Pep 1100 (<300) pg/mL Serum Total Protein 6.8 (6.3-8.2) g/dL Albumin 3.5 (3.5-5.0) g/dL 02/19/24 Range/Units 20:35 WBC 6.5 (4.23-9.07) x10^3/uL RBC 3.22 L (4.63-6.08) x10^6/uL Hgb 10.7 L (13.7-17.5) g/dL Hct 33.4 L (40.1-51.0) % MCV 103.7 H (79.0-92.2) fL MCH 33.2 H (25.7-32.2) pg MCHC 32.0 L (32.3-36.5) g/dL RDW 14.9 H (11.6-14.4) % Plt Count 179 (163-337) x10^3/uL MPV 10.7 (9.4-12.4) fL Gran % 74.3 H (34.0-67.9) % Immature Gran % (Auto) 2.0 H (0.001-0.429) % Nucleat RBC Rel Count 0.0 (0.00-0.2) % Eos # (Auto) 0.10 (0.04-0.54) x10^3/uL Immature Gran # (Auto) 0.13 H (0.001-0.031) x10^3u/L Absolute Lymphs (auto) 0.60 L (1.32-3.57) x10^3/uL Absolute Monos (auto) 0.82 (0.30-0.82) x10^3/uL Absolute Nucleated RBC 0.00 (0.00-0.012) x10^3u/L Lymphocytes % 9.3 L (21.8-53.1) % Monocytes % 12.7 H (5.3-12.2) % Eosinophils % 1.5 (0.8-7.0) % Basophils % 0.2 (0.2-1.2) % Absolute Granulocytes 4.82 (1.78-5.38) x10^3/uL Basophils # 0.01 (0.01-0.08) x10^3/uL Sodium (135-145) mmol/L Potassium (3.5-5.1) mmol/L Chloride (98-107) mmol/L Carbon Dioxide (22-30) mmol/L Anion Gap (5-15) MEQ/L BUN (9-20) mg/dL Creatinine (0.66-1.25) mg/dL Estimated GFR ML/MIN Glucose (74-106) mg/dL Lactic Acid (0.4-2.0) Calcium (8.4-10.2) mg/dL Total Bilirubin (0.2-1.3) mg/dL AST (17-59) U/L ALT (0-50) U/L Alkaline Phosphatase (38-126) U/L Troponin I (0.000-0.033) ng/mL NT-Pro-B Natriuret Pep (<300) pg/mL Serum Total Protein (6.3-8.2) g/dL Albumin (3.5-5.0) g/dL - Progress Progress: improved Progress Note: Patient is a 64-year-old male presents to our emergency department for evaluation of leg swelling. Right greater than left. Symptoms started approximately 1 week ago. However now the right lower extremity has developed blisters that are now weeping. The leg is red warm and tender. Physical exam reveals a cellulitis with open blisters. Patient had a right lower extremity ultrasound performed approximately 5 days ago. The ultrasound was negative for DVT. Workup reveals an elevated BNP. Lasix ordered. However patient declined the Lasix because he does not want to pee excessively overnight. No active shortness of breath. Chest x-ray negative for pulmonary edema. Antibiotics ordered. Patient will require ongoing monitoring. Patient will be admitted for further evaluation and treatment. Plan of care discussed with patient. He agrees to admission [facility] for further evaluation and treatment. Case discussed with Dr. Be at 10:[address] Be accepts admission to observation. Portions of this note were created with voice recognition technology. There may be grammatical, spelling, punctuation or sound alike errors Complexity problem addressed is moderate acute complicated. No critical care time. Complex of data reviewed and analyzed is extensive. Test ordered chest reviewed results analyzed and correlated clinically with history and physical examination. Case discussed with hospitalist who accepts admission to observation. Risk of complication and or risk of morbidity/mortality patient management is high. Patient requires hospitalization for further evaluation and treatment. Vital stable. Time spent admit patient is approximately 20 minutes. Plan of care established for shared decision making. No social determinants of health present impede follow-up. Portions of this note were created with voice recognition technology. There may be grammatical, spelling, punctuation or sound alike errors 02/19/24 22:22 02/19/24 22:35 Counseled pt/family regarding: lab results, diagnosis, rad results - Departure Departure Disposition: Observation Clinical Impression: Cellulitis, Leg swelling Condition: Stable Critical Care Time: No Referrals: MORALES,RUBINA, DIRECTOR OF KIDS [Primary Care Provider] - Follow up/PCP as directed
[2024-02-19] MEDS ORDERED: Lasix 40 MG/4 ML ONE (22:15)
[2024-02-19] MEDS: Lasix 40 MG/4 ML IV ONE (22:16)
[2024-02-19] MEDS ORDERED: PIPERACILLIN/TAZOBACTAM IV ONE (22:21)
[2024-02-19] MEDS ORDERED: Sodium Chloride 100ML MINI-BAG PLUS 100 ML IV ONE (22:21)
[2024-02-19] MEDS: PIPERACILLIN/TAZOBACTAM 3.375 GM in Sodium Chloride 100ML MINI-BAG PLUS 100 ML IV ONE (22:28)
[2024-02-19] MEDS ORDERED: VANCOMYCIN 1 GRAM/200 ML BAG 1 GM/200 ML PIGGYBACK IV ONE (23:02)
[2024-02-19] MEDS: VANCOMYCIN 1 GRAM/200 ML BAG 1 GM/200 ML PIGGYBACK IV ONE (23:07)
--- NOTE | 2024-02-19 23:24 | XRAY ---
CLINICAL HISTORY: Chest pain COMPARISON: None. TECHNIQUE: X-ray examination of the chest is performed in frontal view. FINDINGS: Enlarged heart size despite AP view. In inhomogeneous shadowing, the right subhilar area could be projectional overlapping shadows/infiltration. Hazy left lower zone likely due to overlying soft tissue shadow. A small opacity at the mid periphery on the left side could be pulmonary or pleural calcification. Right hilar calcification could be due to calcifying lymph nodes. Costtophrenic angles are clear. Visualized bones intact. IMPRESSION: 1. Enlarged heart size despite AP view. 2. In inhomogeneous shadowing, the right subhilar area could be projectional overlapping shadows/infiltration. 3. Right hilar and left mid-zone peripheral calcification//Pleural thickening. 4. Hazy left lower zone likely due to overlying soft tissue shadow. However, underlying pathology can not be clearly delineated. 5. CT might prove further helpful if clinically warranted. Electronically Signed by: Heidy Blanco MD. (02/19/2024 23:19:02 EDT)
--- NOTE | 2024-02-20 00:19 | PCM.HP ---
History of Present Illness - Chief Complaint Chief Complaint: Cellulitis Date: 02/20/24 History of Present Illness: 64 years old very pleasant male with past medical history significant for chronic A-fib on Xarelto, hypertension, chronic bilateral lower extremity swelli ng, came to the ER for evaluation on increased right lower extremity swelling. He has been having chronic bilateral LE swelling, on diuretics which he was taking regularly but with out any affect. It started getting worse for one week and he was following up with his nurse mariyaitioner, got DVT scan 2 days ago that came out -ve .[facility] id notice increase erthma and redness on RLE and then it started weeping as well. He denied having any chest pain shortness of breath no orthopnea /PND reported. Did not have any congestive heart failure . In the ER vital signs stable as well as lab workup concerned creatinine 1.45 BNP 1100 troponin within normal range. Chest x-ray showed cardiomegaly otherwise unimpressive. Patient received antibiotics. Refused to get Lasix due to concern of frequent urination overnight. He is admitted for right lower extremity cellulitis/swelling evaluation - Review of Systems All Other Systems: Reviewed and Negative (14 systems reviewed and marked ve except mentioned in [place]) Medications & Allergies Home Medications: Home Medication List Metoprolol Succinate 25 mg Xl* [Toprol-Xl 25MG Tablets] 1 tab PO DAILY 04/19/21 [History Confirmed 02/20/24] Potassium Chloride 10 meq PO DAILY 04/19/21 [History Confirmed 02/20/24] Rivaroxaban [Xarelto] 20 mg PO DAILY 04/19/21 [History Confirmed 02/20/24] Amiodarone HCl [Pacerone] 200 mg PO BID 02/19/24 [History Confirmed 02/20/24] Bumetanide 1 mg [Bumex 1 mg] 1 mg PO BID 02/19/24 [History Confirmed 02/20/24] Ferrous Sulfate 325 mg [Feosol 325 mg] 325 mg PO TID 02/19/24 [History Confirmed 02/20/24] methocarbamoL [Methocarbamol] 750 mg PO TID PRN 02/19/24 [History Confirmed 02/20/24] Allergies/Adverse Reactions: Allergies Allergy/AdvReac Type Severity Reaction Status Date / Time No Known Drug Allergies Allergy Verified 02/19/24 20:21 - Past Medical History Past Medical History: Yes Neurological History: Peripheral Neuropathy ENT History: No Pertinent History Cardiac History: Arrhythmia, Hypertension Respiratory History: No Pertinent History Endocrine Medical History: No Pertinent History Musculoskelatal History: Degenerative Disk Disease, Osteoarthritis GI Medical History: No Pertinent History History: No Pertinent History Pyscho-Social History: No Pertinent History Male Reproductive Disorders: No Pertinent History Comment: HX OF 2 SURGERIES INCLUDING FUSION AND DECOMPRESSION OF PINCHED NERVE. SINCE 2ND SURGERY HAS NEUROPATHY RIGHT THIGH. - Past Surgical History Past Surgical History: Yes Neuro Surgical History: No Pertinent History Cardiac History: Cardiac Catheterization, Other Respiratory Surgery: No Pertinent History GI Surgical History: No Pertinent History Genitourinary Surgical Hx: No Pertinent History Musculskeletal Surgical Hx: Orthopedic Surgery Male Surgical History: No Pertinent History Other Surgical History: BARIATRIC, pinched nerves back, cardiac ablation, rotator cuff repair Significant Family History: no pertinent family hx - Social History Smoking Status: Former smoker Exposure to second hand smoke: No Alcohol: Weekly Drug Use: none - Social Determinants of Health Will the patient participate in the screening: Declined to provide - Physical Exam Vital Signs: Vital Signs - 24 hr Temp Pulse Resp BP BP Pulse Ox 02/20/24 00:01 93 H 119/82 98 02/19/24 23:31 102 H 127/97 88 L 02/19/24 23:01 97 H 156/95 100 02/19/24 22:35 97 02/19/24 22:33 100 02/19/24 22:30 95 H 140/93 99 02/19/24 22:01 142/85 99 02/19/24 21:31 123/77 97 02/19/24 21:00 142/85 97 02/19/24 20:21 97.8 F 103 H 18 131/99 97 Additional Findings: 02/20/24 00:15 HEENT Young aged, average built in no distress NECK Supple,no thyromegaly, CVS S1+S2 + 0, no murmers RESP Bilateral equal air entry without Crepts/Wheezes heard GIT Soft non tender,non distended Skin, No rah, no Bruises LEGS Bilateral LE swelling Right>> Left, draining ,Dusky discoloration extending all way up PSYCH Normal,mood, judgement and insight NEURO AOX3, no focal deficit 02/20/24 01:09 Results - Labs Lab/Micro Results: Lab Results-Last 24 Hours 02/19/24 02/19/24 02/19/24 Range/Units 20:35 20:35 20:35 WBC 6.5 (4.23-9.07) x10^3/uL RBC 3.22 L (4.63-6.08) x10^6/uL Hgb 10.7 L (13.7-17.5) g/dL Hct 33.4 L (40.1-51.0) % MCV 103.7 H (79.0-92.2) fL MCH 33.2 H (25.7-32.2) pg MCHC 32.0 L (32.3-36.5) g/dL RDW 14.9 H (11.6-14.4) % Plt Count 179 (163-337) x10^3/uL MPV 10.7 (9.4-12.4) fL Gran % 74.3 H (34.0-67.9) % Immature Gran % (Auto) 2.0 H (0.001-0.429) % Nucleat RBC Rel Count 0.0 (0.00-0.2) % Eos # (Auto) 0.10 (0.04-0.54) x10^3/uL Immature Gran # (Auto) 0.13 H (0.001-0.031) x10^3u/L Absolute Lymphs (auto) 0.60 L (1.32-3.57) x10^3/uL Absolute Monos (auto) 0.82 (0.30-0.82) x10^3/uL Absolute Nucleated RBC 0.00 (0.00-0.012) x10^3u/L Lymphocytes % 9.3 L (21.8-53.1) % Monocytes % 12.7 H (5.3-12.2) % Eosinophils % 1.5 (0.8-7.0) % Basophils % 0.2 (0.2-1.2) % Absolute Granulocytes 4.82 (1.78-5.38) x10^3/uL Basophils # 0.01 (0.01-0.08) x10^3/uL Sodium 139 (135-145) mmol/L Potassium 3.9 (3.5-5.1) mmol/L Chloride 105 (98-107) mmol/L Carbon Dioxide 24 (22-30) mmol/L Anion Gap 14.1 (5-15) MEQ/L BUN 25 H (9-20) mg/dL Creatinine 1.45 H (0.66-1.25) mg/dL Estimated GFR 53.5 ML/MIN Glucose 100 (74-106) mg/dL Lactic Acid (0.4-2.0) Calcium 8.9 (8.4-10.2) mg/dL Total Bilirubin 0.80 (0.2-1.3) mg/dL AST 31 (17-59) U/L ALT 38 (0-50) U/L Alkaline Phosphatase 146 H (38-126) U/L Troponin I < 0.012 (0.000-0.033) ng/mL NT-Pro-B Natriuret Pep 1100 (<300) pg/mL Serum Total Protein 6.8 (6.3-8.2) g/dL Albumin 3.5 (3.5-5.0) g/dL 02/19/24 02/19/24 Range/Units 20:43 22:30 WBC (4.23-9.07) x10^3/uL RBC (4.63-6.08) x10^6/uL Hgb (13.7-17.5) g/dL Hct (40.1-51.0) % MCV (79.0-92.2) fL MCH (25.7-32.2) pg MCHC (32.3-36.5) g/dL RDW (11.6-14.4) % Plt Count (163-337) x10^3/uL MPV (9.4-12.4) fL Gran % (34.0-67.9) % Immature Gran % (Auto) (0.001-0.429) % Nucleat RBC Rel Count (0.00-0.2) % Eos # (Auto) (0.04-0.54) x10^3/uL Immature Gran # (Auto) (0.001-0.031) x10^3u/L Absolute Lymphs (auto) (1.32-3.57) x10^3/uL Absolute Monos (auto) (0.30-0.82) x10^3/uL Absolute Nucleated RBC (0.00-0.012) x10^3u/L Lymphocytes % (21.8-53.1) % Monocytes % (5.3-12.2) % Eosinophils % (0.8-7.0) % Basophils % (0.2-1.2) % Absolute Granulocytes (1.78-5.38) x10^3/uL Basophils # (0.01-0.08) x10^3/uL Sodium (135-145) mmol/L Potassium (3.5-5.1) mmol/L Chloride (98-107) mmol/L Carbon Dioxide (22-30) mmol/L Anion Gap (5-15) MEQ/L BUN (9-20) mg/dL Creatinine (0.66-1.25) mg/dL Estimated GFR ML/MIN Glucose (74-106) mg/dL Lactic Acid 1.2 (0.4-2.0) Calcium (8.4-10.2) mg/dL Total Bilirubin (0.2-1.3) mg/dL AST (17-59) U/L ALT (0-50) U/L Alkaline Phosphatase (38-126) U/L Troponin I < 0.012 (0.000-0.033) ng/mL NT-Pro-B Natriuret Pep (<300) pg/mL Serum Total Protein (6.3-8.2) g/dL Albumin (3.5-5.0) g/dL - Radiology Impressions Radiology Exams & Impressions: Radiology Procedures Category Date Time Status CHEST 1 VIEW (PORTABLE) Stat Exams 02/19/24 21:43 Completed Assessment/Plan (1) Leg swelling Current Visit: Yes Status: Acute Code(s): M79.89 - OTHER SPECIFIED SOFT TISSUE DISORDERS (2) Chronic a-fib Current Visit: Yes Status: Chronic Code(s): I48.20 - CHRONIC ATRIAL FIBRILLATION, UNSPECIFIED (3) Cellulitis of right lower leg Current Visit: No Status: Acute Code(s): L03.115 - CELLULITIS OF RIGHT LOWER LIMB Telemedicine Encounter - Telemedicine Encounter Telemedicine Encounter: The entirety of this encounter was performed via Telemedicine" This visit was performed using real-time audio and video connection between my location and thepatients locationwith the assistance of a surrogateat the patients location. Written or verbal consent was obtained from the patient/guardian to perform [facility]. Any patient questions regarding the telemedicine interaction were answered. Bilateral lower extremity Swelling Seems chronic Will keep leg elevated Will follow-up on cardiogram Continue diuretics with close monitoring of creatinine Right lower extremity cellulitis DVT scan OSH came out negative Continue Zosyn and vancomycin Continue wound care Keep legs elevated Chronic atrial fibrillation Heart rate well-controlled Continue amiodarone Continue Xarelto Hypertension Blood pressure stable Continue home blood pressure meds Abnormal chest x-ray Concerning some haziness in left lower zone will order CT without contrast for further evaluation Morbid Obesity BMI > 50 Pt denying having ERLINDA Needs exercise and dietary advise for weight reduction DVT prophylaxis SCD/Xarelto CODE STATUS full Discharge plan pending clinical stability I have reviewed patient laboratories and imaging in detail all question and concerns were addressed
[2024-02-20 00:24] LABS: Appearance Clear (Clear); Bacteria None Seen /HPF (None Seen); Bilirubin Negative (Negative); Blood Moderate (Negative); Epithelial Cells None Seen /HPF (None Seen); Glucose, Urine Negative (Negative); Hyaline Casts NONE SEEN /LPF (0-2); Ketones Negative (Negative); Leukocyte Esterase Negative (Negative); Nitrite Negative (Negative); Protein,Urine Dip 30 (Negative); RBC 21-50 /HPF (0-5); Specific Gravity 1.025 (1.005-1.030); WBC 0-2 /HPF (0-5)
[2024-02-20 00:28] LABS: ADD URINE CULTURE? YES (NO)
[2024-02-20] MEDS ORDERED: METHOCARBAMOL 750 MG PO SCH (01:00)
[2024-02-20] MEDS: BUMEX 1 MG IV SCH ×2 (01:17→09:42)
[2024-02-20] MEDS: VANCOMYCIN 1 GRAM/200 ML BAG 1 GM/200 ML PIGGYBACK IV SCH (01:28)
[2024-02-20] MEDS: MELATONIN PO PRN (01:31)
[2024-02-20 04:44] LABS: Hematocrit 32.9 % (40.1-51.0); Hemoglobin 10.6 g/dL (13.7-17.5); Mean Cell Volume 103.8 fL (79.0-92.2); Mean Corpuscular Hemoglobin 33.4 pg (25.7-32.2); Mean Corpuscular Hgb Concent. 32.2 g/dL (32.3-36.5); Mean Platelet Volume 10.9 fL (9.4-12.4); Platelet Count 194 x10^3/uL (163-337); Red Blood Count 3.17 x10^6/uL (4.63-6.08); Red Cell Distribution Width 15.4 % (11.6-14.4); White Blood Count 6.5 x10^3/uL (4.23-9.07)
[2024-02-20] MEDS ORDERED: Sodium Chloride 100ML MINI-BAG PLUS 100 ML IV ONE (05:02)
[2024-02-20] MEDS ORDERED: PIPERACILLIN/TAZOBACTAM IV ONE (05:02)
[2024-02-20 05:10] LABS: ANION GAP 12.2 MEQ/L (5-15); Calcium 8.7 mg/dL (8.4-10.2); Creatinine 1 1.45 mg/dL (0.66-1.25); EST GLOMERULAR FILTRATION RATE 53.5 ML/MIN
[2024-02-20] MEDS: PIPERACILLIN/TAZOBACTAM 4.5 GM in Sodium Chloride 100ML MINI-BAG PLUS 100 ML IV SCH (05:12)
[2024-02-20] MEDS ORDERED: Robaxin PO PRN (07:10)
[2024-02-20] MEDS: NORCO 5/325 MG PO PRN (09:41)
[2024-02-20] MEDS: VANCOMYCIN 2 GRAM/400 ML BAG 2 GM/400 ML PIGGYBACK IV SCH (09:41)
[2024-02-20] MEDS: Toprol-Xl 25MG Tablets PO SCH (09:42)
[2024-02-20] MEDS: FEOSOL 325 MG PO SCH (09:42)
[2024-02-20] MEDS: Cordarone 200 MG PO SCH (09:42)
[2024-02-20] MEDS: XARELTO 10 MG TABLET PO SCH (09:42)
[2024-02-20] MEDS ORDERED: VANCOMYCIN 1 GRAM/200 ML BAG 1 GM/200 ML PIGGYBACK IV SCH (10:00)
[2024-02-20] MEDS ORDERED: NON-FORMULARY ITEM (Rivaroxaban [Xarelto] 20 MG Tablet) PO SCH (10:00)
--- NOTE | 2024-02-20 12:47 | XRAY ---
Indication: Follow-up abnormal chest x-ray February 19, 2024. Multiple contiguous axial images obtained through the chest without contrast. Comparison: None Left hemithorax demonstrates moderate lateral calcified pleural plaquing and minimal left base pleural thickening. Elsewhere minimal scattered fibrosis/scarring greatest left lung base. 7 mm calcified granuloma superior segment right lower lobe. No suspicious pulmonary mass/nodule, infiltrate, or effusion. Heart not enlarged with scattered coronary calcifications. Aorta is normal in course and caliber. [place] right hilar calcified nodes. No pathologic mediastinal lymphadenopathy. Bony thorax intact with osteopenia, moderate degenerative changes throughout spine, incompletely visualized mid lumbar fusion hardware, and minimal dextroscoliosis. Limited upper abdomen demonstrates gastric bypass surgery, fatty liver, distended gallbladder, nonobstructing bilateral renal micro-calculi, and a few splenic calcified granulomas. Impression: 1. Left hemithorax calcified pleural plaquing and pleural thickening corresponding to chest radiograph finding. 2. Incidental coronary calcifications, chronic bony findings, distended gallbladder, fatty liver, nonobstructing bilateral renal micro-calculi, and old granulomatous disease. 3. Remaining CT chest without contrast exam is negative.
--- NOTE | 2024-02-20 13:35 | PCM.NOTE ---
Mr. Morales is a 64 years old very pleasant male with past medical history significant for chronic A-fib on Xarelto, hypertension, chronic bilateral lower extremity swelling admitted 02/20/24 with BLE edema and cellulitis after experiencing a two day history of increased redness, swelling, and drainage in the RLE. Patient did have recent wound culture of the LLE which grew staph pseud intermedius and providenicia rettgeri. Doppler to the RLE performed and negative for DVT. On exam the RLE is noted with erythema, warmth, and multiple open blisters with purulent drainage. The LLE is also noted with erythema, edema, and open wound to the calf. CXR did show right hilar and left mid-zone peripheral calcification//Pleural thickening and hazy left lower zone likely due to overlying soft tissue shadow. CT chest performed and was negative for PE and acute findings. Lab findings with elevated ESR and procal. Creat at baseline at 1.45. Vanc/Zosyn initiated. Podiatry consulted. Arterial duplex pending. Will add [place] for pain management. Plan for continued abx - follow cultures.
--- NOTE | 2024-02-20 15:19 | XRAY ---
Indication: Bilateral leg edema. Nonhealing wound. Two-dimensional sonogram and color Doppler imaging major arteries left and right leg performed. Comparison: None Sonogram limited due to patient body habitus. Ankle-brachial index could not be performed due to ankle wounds. Examination right leg demonstrates widely patent common femoral, deep femoral, and mid to proximal superficial femoral arteries with normal multiphasic arterial waveforms. Remaining distal superficial femoral, popliteal, posterior tibial, and dorsal pedal arteries poorly visualized due to patient body habitus. No critical stenosis/obstruction. Lower leg arterial waveforms are monophasic. Examination left leg demonstrates widely patent common femoral, deep femoral, superficial femoral, popliteal, posterior tibial, and dorsal pedal arteries all with normal multiphasic arterial waveforms. Impression: Limited exam due to patient habitus. Lower legs not well evaluated. Left and right leg arterial sonogram grossly negative for critical stenosis/obstruction.
[2024-02-21 05:08] LABS: Absolute Neutrophil Ct (ANC) 3.99 x10^3/uL (1.78-5.38); BASOPHIL % 0.5 % (0.2-1.2); Basophil (Absolute #) 0.03 x10^3/uL (0.01-0.08); Eosinophil % 1.7 % (0.8-7.0); Eosinophil (Absolute #) 0.11 x10^3/uL (0.04-0.54); Hematocrit 38.3 % (40.1-51.0); IMMATURE GRAN # 0.12 x10^3u/L (0.001-0.031); IMMATURE GRAN % 1.9 % (0.001-0.429); Lymphocyte (Absolute #) 1.36 x10^3/uL (1.32-3.57); Lymphocytes % 21.6 % (21.8-53.1); Mean Cell Volume 104.9 fL (79.0-92.2); Mean Corpuscular Hemoglobin 32.9 pg (25.7-32.2); Mean Corpuscular Hgb Concent. 31.3 g/dL (32.3-36.5); Mean Platelet Volume 10.4 fL (9.4-12.4); Monocyte (Absolute #) 0.69 x10^3/uL (0.30-0.82); Neutrophil % 63.3 % (34.0-67.9); Platelet Count 278 x10^3/uL (163-337); Red Blood Count 3.65 x10^6/uL (4.63-6.08); Red Cell Distribution Width 15.1 % (11.6-14.4); White Blood Count 6.3 x10^3/uL (4.23-9.07)
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
[2024-02-21 05:30] LABS: ALBUMIN 3.9 g/dL (3.5-5.0); ANION GAP 15.4 MEQ/L (5-15); BILIRUBIN,TOTAL 0.8 mg/dL (0.2-1.3); Calcium 9.2 mg/dL (8.4-10.2); Creatinine 1 1.73 mg/dL (0.66-1.25); EST GLOMERULAR FILTRATION RATE 43.3 ML/MIN; Potassium 4.2 mmol/L (3.5-5.1); Total Protein 7.6 g/dL (6.3-8.2)
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
[2024-02-21 14:46] VITALS: BP 121/88; PULSE 96; RESP 18; TEMP 97.3; O2SAT 98
--- NOTE | 2024-02-21 18:34 | PCM.CONS ---
Podiatry HPI - Consult Date of Consultation Date: 02/20/24 Reason for Consult: Cellulitis RLE , venous insufficency ulceration. Bilateral lower extremtiy edema. Consulting Provider: DUKE WEISS DPM [facility] History of Present Illness: Rolan is a very plesant 64 years old male with signficant PMHx for chronic A- fib on Xarelto, hypertension, chronic bilateral lower extremity swelling admitted 02/20/24 with BLE edema and cellulitis after experiencing a two day history of increased redness, swelling, and drainage in the RLE. Patient did have recent wound culture of the LLE which grew staph pseudintermedius and providenicia rettgeri. Doppler to the RLE performed and negative for DVT. On exam the RLE is noted with erythema, warmth, and multiple open blisters with purulent drainage. The LLE is also noted with erythema, edema, and open wound to the calf. Creat at baseline at 1.45. Vanc/Zosyn initiated. Medications & Allergies Home Medications: Home Medication List Metoprolol Succinate 25 mg Xl* [Toprol-Xl 25MG Tablets] 1 tab PO DAILY 04/19/21 [History Confirmed 02/20/24] Potassium Chloride 10 meq PO DAILY 04/19/21 [History Confirmed 02/20/24] Rivaroxaban [Xarelto] 20 mg PO DAILY 04/19/21 [History Confirmed 02/20/24] Amiodarone HCl [Pacerone] 200 mg PO BID 02/19/24 [History Confirmed 02/20/24] Bumetanide 1 mg [Bumex 1 mg] 1 mg PO BID 02/19/24 [History Confirmed 02/20/24] Ferrous Sulfate 325 mg [Feosol 325 mg] 325 mg PO TID 02/19/24 [History Confirmed 02/20/24] methocarbamoL [Methocarbamol] 750 mg PO TID PRN 02/19/24 [History Confirmed 02/20/24] Hydrocodone/Acetaminophen [Hydrocodone-Acetamin 5-325 mg] 1 tab PO Q4HPRN PRN 3 Days #18 tablet MDD 6 02/21/24 [Rx] Sulfamethoxazole/Trimethoprim [Bactrim Ds Tablet] 1 each PO BID 7 Days #14 tablet 02/21/24 [Rx] Allergies/Adverse Reactions: Allergies Allergy/AdvReac Type Severity Reaction Status Date / Time No Known Drug Allergies Allergy Verified 02/19/24 20:21 - Past Medical History Past Medical History: Yes Neurological History: Peripheral Neuropathy ENT History: No Pertinent History Cardiac History: Arrhythmia, Hypertension Respiratory History: No Pertinent History Endocrine Medical History: No Pertinent History Musculoskelatal History: Degenerative Disk Disease, Osteoarthritis GI Medical History: No Pertinent History History: No Pertinent History Pyscho-Social History: No Pertinent History Male Reproductive Disorders: No Pertinent History Comment: HX OF 2 SURGERIES INCLUDING FUSION AND DECOMPRESSION OF PINCHED NERVE. SINCE 2ND SURGERY HAS NEUROPATHY RIGHT THIGH. - Past Surgical History Past Surgical History: Yes Neuro Surgical History: No Pertinent History Cardiac History: Cardiac Catheterization, Other Respiratory Surgery: No Pertinent History GI Surgical History: No Pertinent History Genitourinary Surgical Hx: No Pertinent History Musculskeletal Surgical Hx: Orthopedic Surgery Male Surgical History: No Pertinent History Other Surgical History: BARIATRIC, pinched nerves back, cardiac ablation, rotator cuff repair Significant Family History: no pertinent family hx - Social History Smoking Status: Former smoker Exposure to second hand smoke: No Alcohol: Weekly Drug Use: none - Social Determinants of Health Will the patient participate in the screening: Declined to provide Do you worry about a steady place to live?: No Do you have any problems with any of the following?: No known problems In the past 12 months,have you had to go without utilities?: No Have you or anyone in your house had to go without enough: No Transportation Issues: No Has anyone in your support network made you feel unsafe?: No Does the patient want assistance with any of the above?: No Physical Exam - General General Appearance: no apparent distress - Neuro Neurologic: Epicritic and protopathic (diminished sensation to the bilateral lower extremity.) - Vascular Peripheral Pulses: Posterior tibialis: 1+ (difficulty assessing due to habitus), Dorsalis-Pedis: 1+ Capillary Refill Time: < 3 seconds Hair Growth: Symmetrical and Bilateral Varicosities: Positive Edema: Pitting Edema Degree: 2+ Skin: Supple, not atrophic Skin Temperature: Warm to touch (R>L) - Muscular Muscle Strength: 5/5 on all 4 quadrants - Narrative Narrative Physical Exam: Podiatry Physical Exam Multiple wounds to the bilateral lower extremity MEasurement of anterior wound RLE at extensor crease measuring 2.6 x 2.4 x 0.4 possible exposed tibialis anterior, just medial to this 1.7 x 2.2 x0.2 post debridement Results - Labs Lab/Micro Results: Lab Results-Last 24 Hours 02/20/24 02/21/24 02/21/24 Range/Units 04:10 04:40 04:40 WBC 6.3 (4.23-9.07) x10^3/uL RBC 3.65 L (4.63-6.08) x10^6/uL Hgb 12.0 L (13.7-17.5) g/dL Hct 38.3 L (40.1-51.0) % MCV 104.9 H (79.0-92.2) fL MCH 32.9 H (25.7-32.2) pg MCHC 31.3 L (32.3-36.5) g/dL RDW 15.1 H (11.6-14.4) % Plt Count 278 D (163-337) x10^3/uL MPV 10.4 (9.4-12.4) fL Gran % 63.3 (34.0-67.9) % Immature Gran % (Auto) 1.9 H (0.001-0.429) % Nucleat RBC Rel Count 0.0 (0.00-0.2) % Eos # (Auto) 0.11 (0.04-0.54) x10^3/uL Immature Gran # (Auto) 0.12 H (0.001-0.031) x10^3u/L Absolute Lymphs (auto) 1.36 (1.32-3.57) x10^3/uL Absolute Monos (auto) 0.69 (0.30-0.82) x10^3/uL Absolute Nucleated RBC 0.00 (0.00-0.012) x10^3u/L Lymphocytes % 21.6 L (21.8-53.1) % Monocytes % 11.0 (5.3-12.2) % Eosinophils % 1.7 (0.8-7.0) % Basophils % 0.5 (0.2-1.2) % Absolute Granulocytes 3.99 (1.78-5.38) x10^3/uL Basophils # 0.03 (0.01-0.08) x10^3/uL Sodium 136 (135-145) mmol/L Potassium 4.2 (3.5-5.1) mmol/L Chloride 102 (98-107) mmol/L Carbon Dioxide 23 (22-30) mmol/L Anion Gap 15.4 H (5-15) MEQ/L BUN 25 H (9-20) mg/dL Creatinine 1.73 H (0.66-1.25) mg/dL Estimated GFR 43.3 ML/MIN Glucose 118 H (74-106) mg/dL Calcium 9.2 (8.4-10.2) mg/dL Total Bilirubin 0.80 (0.2-1.3) mg/dL AST 29 (17-59) U/L ALT 36 (0-50) U/L Alkaline Phosphatase 153 H (38-126) U/L C-Reactive Prot, Quant 200 H (0-10) mg/L Serum Total Protein 7.6 (6.3-8.2) g/dL Albumin 3.9 (3.5-5.0) g/dL Microbiology 02/19/24 22:26 Blood Culture - Preliminary Blood 02/19/24 22:22 Blood Culture - Preliminary Blood 02/20/24 13:17 Wound Culture - Preliminary Foot - Right Top GRAM NEGATIVE ID AND SENSITIVITY PENDING 02/20/24 00:01 Urine Culture - Final Urine, Void NO GROWTH - Radiology Impressions Radiology Exams & Impressions: Radiology Procedures Category Date Time Status ARTERIAL BILAT LOWER EXTREMITY [US] Routine Exams 02/20/24 13:22 Completed CHEST 1 VIEW (PORTABLE) Stat Exams 02/19/24 21:43 Completed CHEST WITHOUT CONTRAST [CT] Routine Exams 02/20/24 01:02 Completed ECHO W/2D AND DOPPLER [US] Routine Exams 02/20/24 00:58 Taken Assessment/Plan (1) Atrial fibrillation with RVR Status: Acute Code(s): I48.91 - UNSPECIFIED ATRIAL FIBRILLATION (2) Bilateral cellulitis of lower leg Status: Acute Assessment & Plan: Inital patient examination and evaluation. Venous ultrasound negative for DVT Patient experiencing significant 2+ pitting edema Patient is a good candidate for compression therapy. Bilateral unna boots applied for localized edema and venous insufficiency. Bedside debridement preformed of the wounds to the right lower extremity with post measurements indicated in the physical section of note Patient will continue outpatient abx with TMP/SMX Patient adamant about discharge tomorrow due to his pets and livestock at home Patient advised to continue compression therapy until follow up Plan for outpatient antibiotics and following with Culture and sensitivity. Will monitor for response. Code(s): L03.116 - CELLULITIS OF LEFT LOWER LIMB; L03.115 - CELLULITIS OF RIGHT LOWER LIMB (3) Cellulitis Status: Acute Code(s): L03.90 - CELLULITIS, UNSPECIFIED (4) Cellulitis of right lower leg Status: Acute Code(s): L03.115 - CELLULITIS OF RIGHT LOWER LIMB (5) Leg swelling Status: Acute Code(s): M79.89 - OTHER SPECIFIED SOFT TISSUE DISORDERS (6) Morbid obesity Status: Chronic Code(s): E66.01 - MORBID (SEVERE) OBESITY DUE TO EXCESS CALORIES
[2024-02-22] MEDS ORDERED: TROUGH DRUG LEVELS IJ ONE (09:30)
== END 2024-02-21 12:49 | disposition home or self-care (01) | DRG 603 ==
LOC: ED 19:59 → MED SURG 23:19 → OBSVTOIN 02-20 07:49
PROVIDERS: ADMIT Internal Medicine; ATTEND Internal Medicine
DX: L03.116 Cellulitis of left lower limb (principal); I48.20 Chronic atrial fibrillation, unspecified; L03.115 Cellulitis of right lower limb; I10 Essential (primary) hypertension; R93.89 Abnormal findings on diagnostic imaging of other specified body structures; E66.01 Morbid (severe) obesity due to excess calories; M79.89 Other specified soft tissue disorders; Z79.01 Long term (current) use of anticoagulants; Z79.899 Other long term (current) drug therapy
CPT/HCPCS: 36000; 36415; 71045; 71250; 80048; 80053; 81001; 83036; 83605; 83880; 84145; 84484; 85025; 85027; 85652; 86140; 87040; 87070; 87077; 87086; 93268; 93306; 93925; 94760; 96365; 96367; 99284; G0378; Q3014; J1940; J2543; A9270-GY; J3370

== ENCOUNTER 2024-10-15 11:58 | Day surgery (SDC) | payer MEDICARE ==
[2012-02-23 23:43] VITALS: BP 150/90
[2024-10-15] MEDS ORDERED: Depo-Medrol 40 MG/ML IM ONE (11:59)
[2024-10-15] MEDS ORDERED: LIDOCAINE HCL 2% 100 MG/5 ML IJ ONE (11:59)
[2024-10-15] MEDS ORDERED: propofoL IV ONE (14:01)
[2024-10-15] MEDS ORDERED: Versed 2 MG/2 ML Injection ONE (14:01)
--- NOTE | 2024-10-15 19:25 | XRAY ---
27 seconds of fluoroscopy was used in surgery for a bilateral L4-S1 MBB.
--- NOTE | 2024-10-15 19:31 | XRAY ---
Indication: Bilateral L4-S1 MBB. Intraoperative fluoroscopy provided for 27 seconds. Single digital spot image submitted for interpretation demonstrates posterior needle tips projecting over expected left and right L4-S1 nerve roots. Correlate with intraoperative findings/report. Incidental bilateral L5-S1 posterior fusion hardware.
== END 2024-10-15 14:45 | disposition home or self-care (01) ==
LOC: SDC-PAIN 11:58
PROVIDERS: ATTEND Psychiatry & Neurology Pain Medicine
DX: M47.817 Spondylosis without myelopathy or radiculopathy, lumbosacral region (principal)
CPT/HCPCS: 64493; 64494; 72020; 93005; J2250; J2704

== ENCOUNTER 2024-11-04 12:51 | Day surgery (SDC) | payer MEDICARE ==
[2012-02-23 23:43] VITALS: BP 150/90
[2024-11-04] MEDS ORDERED: methylPREDNISolone acetate IM ONE (12:52)
[2024-11-04] MEDS ORDERED: BUPIVACAINE 0.5% VIAL IJ ONE (12:52)
[2024-11-04] MEDS ORDERED: propofoL IV ONE (15:54)
[2024-11-04] MEDS ORDERED: Lactated Ringers 1,000 ML IV ONE (16:54)
--- NOTE | 2024-11-04 18:59 | XRAY ---
Indication: Bilateral L4-S1 MBB. Intraoperative fluoroscopy provided for 21 seconds. Single digital spot image submitted for interpretation demonstrates posterior needle tips projecting over expected left and right L4-S1 nerve roots. Correlate with intraoperative findings/report. Incidental bilateral L4-L5 fusion hardware.
--- NOTE | 2024-11-05 08:52 | XRAY ---
21 seconds of fluoroscopy was used in surgery for a bilateral L4-S1 MBB.
== END 2024-11-04 16:26 | disposition home or self-care (01) ==
LOC: SDC-PAIN 12:51
PROVIDERS: ATTEND Psychiatry & Neurology Pain Medicine
DX: M47.817 Spondylosis without myelopathy or radiculopathy, lumbosacral region (principal)
CPT/HCPCS: 64493; 64494; 72020; J1010; J2704

== ENCOUNTER 2025-01-26 05:54 | Day surgery (SDC) | payer MEDICARE ==
[2025-01-26] MEDS ORDERED: CEFAZOLIN SODIUM ONE ×3 (06:07→06:25)
[2025-01-26] MEDS: Lactated Ringers 1,000 ML IV SCH (06:13)
[2025-01-26] MEDS ORDERED: Thrombin-JMI 5000 UNITS TP ONE (06:20)
[2025-01-26] MEDS ORDERED: XYLOCAINE 1%/Epi 1:100000 MDV 20 ML ONE (06:20)
[2025-01-26] MEDS ORDERED: MINERAL OIL LIGHT 10 ML FOR SURGERY ONE (06:20)
[2025-01-26 06:23] LABS: Hematocrit 37.1 % (40.1-51.0); Hemoglobin 11.6 g/dL (13.7-17.5); Mean Corpuscular Hemoglobin 30.9 pg (25.7-32.2); Mean Corpuscular Hgb Concent. 31.3 g/dL (32.3-36.5); Platelet Count 181 x10^3/uL (163-337); Red Blood Count 3.75 x10^6/uL (4.63-6.08); White Blood Count 6.1 x10^3/uL (4.23-9.07)
[2025-01-26] MEDS ORDERED: KEFZOL 1 GM ONE (06:25)
[2025-01-26] MEDS: KEFZOL 1 GM** 3 G in Sodium Chloride 0.9% 50 ML 50 ML IV ONE (06:34)
[2025-01-26 06:37] LABS: Calcium 9.1 mg/dL (8.4-10.2); Carbon Dioxide 26.0 mmol/L (22-30); Creatinine 1 2.12 mg/dL (0.66-1.25); EST GLOMERULAR FILTRATION RATE 33.9 ML/MIN; Glucose 88.0 mg/dL (74-106); Potassium 4.0 mmol/L (3.5-5.1); SGOT/AST 28.0 U/L (17-59); SGPT/ALT 21.0 U/L (0-50); Total Protein 7.3 g/dL (6.3-8.2)
[2025-01-26] MEDS ORDERED: propofoL IV ONE (06:56)
[2025-01-26] MEDS ORDERED: Quelicin Fliptop 200 MG/10 ML ONE (06:57)
[2025-01-26] MEDS ORDERED: Zofran 4 MG/2 ML VIAL ONE (06:57)
[2025-01-26] MEDS ORDERED: ROCURONIUM BROMIDE IV ONE (06:57)
[2025-01-26] MEDS ORDERED: SUBLIMAZE 100 MCG/2 ML ONE (07:00)
[2025-01-26] MEDS ORDERED: BRIDION 200MG/2ML IV ONE (07:35)
[2025-01-26 10:02] VITALS: RESP 16; O2SAT 97
[2025-01-26 10:10] VITALS: BP 96/71; PULSE 78; TEMP 97
--- NOTE | 2025-01-27 09:52 | OP ---
SURGERY DATE/TIME: 01/26/2025 [id number] PREOPERATIVE DIAGNOSES: 1) Left chronic pressure ulcer to the level of subcutaneous left lower extremity. 2) Chronic venous insufficiency. 3) Obesity. POSTOPERATIVE DIAGNOSIS: 1) Left chronic pressure ulcer to the level of subcutaneous left lower extremity. 2) Chronic venous insufficiency. 3) Obesity. PROCEDURE: Debridement of wound with measurements of 3.5 cm x 2.5 cm and to level of subcutaneous with 2 split-thickness skin graft harvested from the left thigh to left calf. SURGEON: Hector Zuleta DPM SALES MANAGER: LOKI Deutsch, and OLIVIER Griffin ANESTHESIA: General. POSITION: Prone. HEMOSTASIS: Pressure dressing. QUANTITATIVE BLOOD LOSS: Approximately 6 mL. MATERIALS: 3-0 nylon. INJECTABLES: 10 mL of 1% lidocaine with epinephrine. INDICATIONS: The patient is a very pleasant 64-year-old male with a longstanding history of chronic venous insufficiency ulceration to the posterior calf. Patient has failed a number of different types of therapy including, but not limited to, compression therapy, Unna boot, conservative wound management, antibiotics, as well as lymphedema pumps. In the past, patient has resolved his ulceration; however, he has had recent reopening of it and has returned for reassessment. In the previous weeks, he has had some concern over this being a chronic issue for him. I do believe given his issue, it is primarily the tension associated with the venous insufficiency. Given this, he has been compliant with the use of the compression stockings and modalities of sequential compression pump, however, has failed conservative therapy for over a year now. At this time, patient was amenable to more aggressive measures needed for healing of this wound which included the debridement of the wound in an OR setting with copious amounts of irrigation as well as a split-thickness skin graft. Patient understands all risks, complications, and benefits of surgical intervention at this time including, but not limited to, infection, hematoma, seroma, possibility of delayed wound healing, non-wound healing, increased pain, and possibility of failure of surgical intervention. No guarantees were provided as to the outcome of surgical intervention. Plenty of time was allowed for the patient to ask questions, which were answered to his apparent satisfaction. It is at this time we began. DESCRIPTION OF PROCEDURE AND FINDINGS: Patient was brought into the operating room and placed under general anesthesia on the cart and then carefully rotated into a prone position. At this time, the left lower extremity was prepped and draped in the typical sterile fashion and lowered onto the surgical field. At this time, time-out was called, calling out patient identifying factors, allergies, and the operation being performed. Once in agreement, we proceeded with debridement of the wound, which was carried out utilizing a 15-blade to incise the edge down to the level of the subcutaneous, and a curette to prepare the wound base. Healthy bleeding was seen throughout the wound base. The measurements for the wound were 3.5 x 2.5 x 0.2 postoperatively. Copious amounts of sterile saline in the form of Pulsavac were utilized to flush the surgical site. Following this, a 10 mL injection of 1% lidocaine with epinephrine was injected to the lateral aspect of the left thigh, where following this, it was cleansed with rubbing alcohol and dried and then mineral oil was then placed over the harvest site. A 2-inch blade set to 0.018 inches was then passed with the dermatome, harvesting approximately 1.5 inches of skin. This was run through a 1:1.5 mesher. Following this, the wound bed was then prepared and cleansed, and then the harvest was stitched to the graft site. A topical thrombin-soaked 4 x 4 Raytec was placed over the harvest site to coagulate the surface level blood. Following this, after suturing the graft to the site, utilizing a 3-0 nylon in a continuous noninterlocking stitch, a dressing consisting of Adaptic, 4 x 4, Kerlix, and Coban was applied to the left lower extremity and then the upper extremity had Adaptic, 4 x 4, and Tegaderm applied. Patient was then reversed from anesthesia and returned to the postoperative anesthesia care unit with vital signs stable and vascular status intact. Patient handled the anesthesia as well as the procedure without significant complication. Postoperative orders as indicated in the patient's discharge chart.
== END 2025-01-26 10:20 | disposition home or self-care (01) ==
LOC: SDC 05:54
PROVIDERS: ATTEND Podiatrist Foot & Ankle Surgery
DX: L89.629 Pressure ulcer of left heel, unspecified stage (principal); I87.2 Venous insufficiency (chronic) (peripheral); E66.9 Obesity, unspecified

== ENCOUNTER 2025-03-17 11:49 | Day surgery (SDC) | payer MEDICARE ==
[2012-02-23 23:43] VITALS: BP 150/90
[2025-03-17] MEDS ORDERED: BUPIVACAINE 0.5% VIAL IJ ONE (11:50)
[2025-03-17] MEDS ORDERED: methylPREDNISolone acetate IM ONE (11:50)
[2025-03-17] MEDS ORDERED: LIDOCAINE HCL 1% 50 MG/5 ML VL IJ ONE (11:50)
[2025-03-17] MEDS ORDERED: propofoL IV ONE (12:38)
--- NOTE | 2025-03-17 19:19 | XRAY ---
Indication: Left L4-S1 RFA. Intraoperative fluoroscopy provided for 33 seconds. 4 digital spot image submitted for interpretation demonstrates posterior needle tips projecting over expected left L4-S1 nerve roots. Correlate with intraoperative findings/report. Incidental bilateral L4-L5 fusion hardware
--- NOTE | 2025-03-17 19:38 | XRAY ---
33 seconds of fluoroscopy was used in surgery for a left L4-S1 RFA.
== END 2025-03-17 13:20 | disposition home or self-care (01) ==
LOC: SDC-PAIN 11:49
PROVIDERS: ATTEND Psychiatry & Neurology Pain Medicine
DX: M47.817 Spondylosis without myelopathy or radiculopathy, lumbosacral region (principal)